=== PATIENT | male | born 1985 | race Caucasian/White ===

== ENCOUNTER 2025-01-14 15:31 | Emergency (ER) | payer BC, SELFPAY ==
[2025-01-14 15:36] VITALS: BP 129/83
[2025-01-14 15:52] LABS: Hematocrit 39.0 % (39.0-52.0); Hemoglobin 13.9 g/dL (13.0-18.0); Mean Corp Hgb Conc. 35.6 g/dL (33.0-37.0); Mean Corpuscular Volume 84.8 fL (80.0-94.0); Nucleated Red Blood Cells % 0 % (-); Platelet Count 190 10^3/uL (130-400); Red Cell Dist. Width 12.7 % (11.5-14.5)
[2025-01-14 16:14] LABS: ALT (SGPT) 27 U/L (0-50); AST (SGOT) 25 U/L (17-59); Albumin 5.0 g/dl (3.5-5.0); Alkaline Phosphatase 83 U/L (38-126); Blood Urea Nitrogen 12 mg/dl (9-20); Calcium 9.5 mg/dl (8.4-10.2); Carbon Dioxide 25 mmol/L (22-30); Chloride 106 mmol/L (98-107); Glucose 107 mg/dl (70-99); Potassium 4.0 mmol/L (3.5-5.1); Sodium 139 mmol/L (135-145); Total Protein 7.3 g/dl (6.3-8.2); eGFR > 60.00
[2025-01-14 19:19] VITALS: BP 115/77
--- NOTE | 2025-01-15 01:58 | ED.GENMED ---
History of Present Illness
General
Chief Complaint: Skin Problem
Source: patient
Exam Limitations: none
Time Seen by Provider: 01/14/25 23:03
Nursing documentation reviewed up to this point in time: agreed with
History of Present Illness
History of Present Illness:
39-year-old male presenting to the emergency department today with concerns of rectal discomfort today. Claims that he had a procedure by his GI doctor of an internal hemorrhoid few days ago. Noted some increasing swelling and discomfort today
denies specific purulence denies fevers chest pain shortness of breath or abdominal pain. Was seen by the GI doctor told to go to the ER with concerns of possible perianal abscess.
Review of Systems
Review of Systems
Allergies reviewed?: Yes
All Other Systems: ROS reviewed and negative except as documented in HPI and ROS
Phy Exam
Physical Exam
Physical Exam:
GENERAL: Alert , in no apparent distress
EYE: pupils equal and reactive
NECK: Supple, no significant adenopathy.
ENT: o/p clr, mmm.
CARDIAC: Regular rate and rhythm .
LUNGS: Clear breath sounds bilaterally, no acute respiratory distress, no wheezes/rales/rhonchi
ABDOMEN: Multiple external hemorrhoids no significant tenderness no redness or warmth no purulent drainage. No blood. Abdomen is soft, without focal tenderness, no r/g, no cvat
NEUROLOGICAL: Alert and oriented, no focal neuro deficits
SKIN: Warm and dry, skin intact.
MUSCULOSKELETAL: No edema, well perfused.
PSYCH: Normal and appropriate interaction.
Course
Orders/Labs/Results
Orders:
Orders
01/14/25 15:43
Complete Blood Count/With Diff Urgent
Comprehensive Metabolic Panel Urgent
Lactic Acid Q4H
Comment: ON ICE, CANCEL 2ND ORDER IF FIRST LACTIC ACID LEVEL <2
Blood Culture Q20M
[facility] Source: Blood/Venous
Specimen Description:
Comment: Urgent from separate sites. If patient screens positive for possible sepsis
01/14/25 15:45
Blood Culture Q20M
[facility] Source: Blood/Venous
Specimen Description:
Comment: Urgent from separate sites. If patient screens positive for possible sepsis
01/14/25 23:22
CT Pelvis With Iv Contrast Urgent
Comment:
Reason For Exam: anal pain, concernf for anal abcess
Abnormal Lab Results
01/14/25
15:43
RBC 4.60 L 10^6/uL
(4.70-6.10)
Glucose 107 H mg/dl
(70-99)
01/14/25 15:43
01/14/25 15:43
Vital Signs
Initial and Last Documented VS:
Initial Vital Signs
Temp Pulse Resp BP Pulse Ox
98.5 F 66 18 129/83 97
01/14/25 15:36 01/14/25 15:36 01/14/25 15:36 01/14/25 15:36 01/14/25 15:36
Last Documented Vital Signs
Temp Pulse Resp BP Pulse Ox
98.5 F 60 16 115/77 100
01/14/25 15:36 01/14/25 19:19 01/14/25 20:00 01/14/25 19:19 01/14/25 19:19
MDM/Problems Addressed
MDM/Problems Addressed:
39-year-old male presenting to the emergency department today with concerns of rectal discomfort. Did have recent internal hemorrhoid procedure a few days ago. Here has a few visualized external hemorrhoids. No obvious abscess on examination or
rectal examination. No drainage. Vital signs normal labs unremarkable. CT scan obtained that did not show any obvious abscess. There was some mild swelling to the area could represent early infection or just procedural inflammation. Patient was
started on antibiotic and vies for close follow-up with his surgical team. Return precautions given.
*Pulse Oximetry
SaO2: 100
Oxygen Mode of Delivery: Room air
Patient hypoxic: no (100)
*Critical Care Note
Total Time (30-74mins, 75-104mins- exclusive of procedures): Not Applicable
ED Attending Note
-
Portions of this chart may have been created with voice recognition software.� Occasional wrong word or��sound alike� substitutions may have occurred due to the inherent limitations of voice recognition software.
Discharge Plan
Departure
Patient Disposition: Home (Routine Discharge)
Date of Disposition: 01/15/25
Time of Disposition: 02:00
Patient with high blood pressure during this ER visit?: No
Condition: Good
Covid-19: Not Applicable
Discharge Problem:
Perianal irritation
Instructions: Anal abscess and fistula - Discharge instructions
Prescriptions:
New
amoxicillin-pot clavulanate 875-125 mg tablet
1 tab PO BID 7 Days Qty: 14 0RF
Referrals:
Scott Craig MD [Active, ColoRectal] - Follow up in 1 week
Fawad Aldridge MD [Family Provider]
Activity Restrictions/Additional Instructions:
You came to the emergency department today with concerns of anal discomfort. No signs of abscess on CT scan. Please take the prescribed antibiotic and follow-up closely with the colorectal team. Return for any worsening, new or concerning
symptoms.
Interventions
Interventions:
*Risk Screen - Suicide Last Done: 01/14/25 15:36
*General Assessment Last Done: 01/14/25 15:36
*Neglect/Abuse Screening Last Done: 01/14/25 19:19
*ED- Fall Risk Assessment Last Done: 01/14/25 19:19
*ED COVID-19 Vaccine History Last Done: 01/14/25 19:19
ED-Skin Assessment Last Done: 01/14/25 23:12
Discharge Date and Time
Print Language: KHMER
[2025-01-15] MEDS: AUGMENTIN 875 MG/125 MG 1 TABLET PO (02:09)
[2025-01-15 02:12] VITALS: BP 108/78
== END 2025-01-15 02:22 | disposition home or self-care (01) ==
LOC: EMR 15:31
PROVIDERS: Student in an Organized Health Care Education/Training Program; EMERGENCY PHYSICIAN Student in an Organized Health Care Education/Training Program; FAMILY PHYSICIAN Family Medicine
DX: K62.89 Other specified diseases of anus and rectum (principal); K64.4 Residual hemorrhoidal skin tags; Z87.19 Personal history of other diseases of the digestive system
CPT/HCPCS: 99284; 72193; 80053; 83605; 85025; 87040; Q9967

== ENCOUNTER 2025-03-05 06:18 | Day surgery (SDC) | payer BC, SELFPAY ==
[2025-03-05 08:00] VITALS: BMI 31.4
[2025-03-05 08:05] VITALS: BP 118/80
[2025-03-05 08:17] VITALS: BMI 31.4
[2025-03-05] MEDS: TYLENOL 1000 MG PO (08:28)
[2025-03-05] MEDS: NORMOSOL-R/PLASMALYTE-A 1000 IV (08:29)
[2025-03-05 09:54] VITALS: BP 129/74
[2025-03-05 10:15] VITALS: BP 139/86
[2025-03-05 10:26] VITALS: BP 136/80
[2025-03-05 10:30] VITALS: BP 128/88
[2025-03-05 10:45] VITALS: BP 123/78
== END 2025-03-05 11:00 | disposition home or self-care (01) ==
LOC: SDS 06:18
PROVIDERS: ATTENDING PHYSICIAN Surgery
DX: K60.50 Anorectal fistula, unspecified (principal); K60.2 Anal fissure, unspecified
CPT/HCPCS: 46270